=== PATIENT | male | born 1985 | race Hispanic/Latino ===

== ENCOUNTER 2018-08-02 10:02 | Emergency (ER) | payer BC ==
[~2018-08-02] VITALS: Ht 180.3 cm; Wt 142.9 kg
--- OUTSIDE RECORDS SUMMARY | 2018-08-02 10:05 | XMS REPORT | Clinical Summary ---
Author Author [employer] [place] [facility] [facility] [employer] [place] [facility] Address Unknown Phone Unavailable Care Team Providers Care Oxygraph Operator Name Role Phone Tawanda Moran MD PCP Allergies No Known Allergies Medications End Date Status Medication Sig Dispensed Refills Start Date Active losartan (COZAAR) 100 MG Take 100 mg 0 tablet by mouth daily. 10/22/2017 naproxen (NAPROSYN) 500 Take 1 tablet 60 tablet 0 201 MG tablet (500 mg 8 total) by mouth 2 (two) times a day with meals for 30 days. Active Problems Not on file Encounters Care Team Description Date Type Specialty Fang Pathak MD Chest pain at rest (Primary Dx) 09/22/2017 Emergency Emergency Medicine after 08/01/2017 Social History Date Tobacco Use Types Packs/Day Years Used Never Smoker Smokeless Tobacco: Never Used Alcohol Use Drinks/Week oz/Week Comments Yes "Socially" Sex Assigned at Date Recorded Not on file Industry Job Start Date Occupation Not on file Not on file Not on file Travel End Travel History Travel Start No recent travel history available. Last Filed Vital Signs Time Taken Vital Sign Reading 09/22/2017 1:23 PM CDT Blood Pressure 132/65 09/22/2017 1:23 PM CDT Pulse 64 09/22/2017 9:39 AM CDT Temperature 36.7 C (98.1 F) 09/22/2017 1:23 PM CDT Respiratory Rate 16 09/22/2017 1:23 PM CDT Oxygen Saturation 100% - Inhaled Oxygen - Concentration - Weight - 09/22/2017 9:39 AM CDT Height 180.3 cm (5' 11") - Body Mass Index - Plan of Treatment Health Maintenance Due Date Last Done Comments INFLUENZA VACCINE 12/13/2017 Procedures Comments Procedure Name Priority Date/Time Associated Diagnosis CT ANGIOGRAM PE CHEST STAT 09/22/2017 1:05 PM CDT XR CHEST 1 VW PORTABLE STAT 09/22/2017 10:46 AM CDT ECG ED PRELIMINARY Routine 09/22/2017 INTERPRETATION 10:27 AM CDT D-DIMER STAT 09/22/2017 10:02 AM CDT ZZESTIMATED GFR STAT 09/22/2017 10:02 AM CDT B NATRIURETIC PEPTIDE STAT 09/22/2017 10:02 AM CDT TROPONIN STAT 09/22/2017 10:02 AM CDT COMPREHENSIVE METABOLIC STAT 09/22/2017 PANEL 10:02 AM CDT HC COMPLETE BLD COUNT STAT 09/22/2017 W/AUTO DIFF 10:02 AM CDT ECG 12-LEAD STAT 09/22/2017 9:44 AM CDT after 08/01/2017 Results * CT Angiogram Pe Chest (09/22/2017 1:05 PM CDT) Narrative Performed At EXAMINATION: [facility] CT ANGIOGRAM PE CHEST CLINICAL HISTORY: chest pain TECHNIQUE: CT angiographic images of the chest were obtained during intravenous administration of iodinated contrast. Computerized reformatted images and 3-D MIP images were also obtained and archived (CT pulmonary embolus protocol). Approximately 60 cc of Visipaque [address] scan performed using radiation dose reduction techniques. Technical factors are evaluated and adjusted to ensure appropriate moderation of exposure. Automated dose management technology is applied to adjust the radiation dose to minimize expose whileachieving a diagnostic quality image. COMPARISON: None. FINDINGS: The exam is suboptimal due to poor contrast desiccation of the subsegmental and subsegmental pulmonary artery branches and motion artifacts. The main pulmonary artery, right pulmonary artery and left pulmonary artery as well as their visualized segmental and subsegmental branches demonstrate no evidence of intraluminal thrombosis. The pulmonary arteries are normal in caliber. There is no evidence of aortic aneurysm or dissection. No mediastinum, hilar or axillary pathologic adenopathy is seen. The heart is normal in caliber. No pericardial effusion is seen. Both lungs are clear. No pleural effusion is identified. The image portion of the abdomen viscera is unremarkable. IMPRESSION: No CTA evidence of pulmonary embolism. No CTA evidence of aortic aneurysm or dissection. No CT evidence of active disease of the chest. [id number] Procedure Note Interface, Radiology Results Incoming - 09/22/2017 1:18 PM CDT EXAMINATION: CT ANGIOGRAM PE CHEST CLINICAL HISTORY: chest pain TECHNIQUE: CT angiographic images of the chest were obtained during intravenous administration of iodinated contrast. Computerized reformatted images and 3-D MIP images were also obtained and archived (CT pulmonary embolus protocol). Approximately 60 cc of Visipaque [address] scan performed using radiation dose reduction techniques. Technical factors are evaluated and adjusted to ensure appropriate moderation of exposure. Automated dose management technology is applied to adjust the radiation dose to minimize expose while achieving a diagnostic quality image. COMPARISON: None. FINDINGS: The exam is suboptimal due to poor contrast desiccation of the subsegmental and subsegmental pulmonary artery branches and motion artifacts. The main pulmonary artery, right pulmonary artery and left pulmonary artery as well as their visualized segmental and subsegmental branches demonstrate no evidence of intraluminal thrombosis. The pulmonary arteries are normal in caliber. There is no evidence of aortic aneurysm or dissection. No mediastinum, hilar or axillary pathologic adenopathy is seen. The heart is normal in caliber. No pericardial effusion is seen. Both lungs are clear. No pleural effusion is identified. The image portion of the abdomen viscera is unremarkable. IMPRESSION: No CTA evidence of pulmonary embolism. No CTA evidence of aortic aneurysm or dissection. No CT evidence of active disease of the chest. [id number] Performing Organization Address City/State/Zipcode Phone Number [facility] [address] [place] [address] * XR Chest 1 Vw Portable (09/22/2017 10:46 AM CDT) Narrative Performed At EXAMINATION:[facility] CL[facility]ICAL [facility]:Chest Pain COMPARISON:None. IMPRESSION: Single frontal view reveals a normal cardiomediastinal silhouette. Lungs are clear. Pleural margins are sharp. The remainder of the examination is unremarkable. [facility]-[id number] Procedure Note Interface, Radiology Results Incoming - 09/22/2017 10:53 AM CDT EXAMINATION: XR CHEST 1 VW PORTABLE CLINICAL HISTORY: Chest Pain COMPARISON: None. IMPRESSION: Single frontal view reveals a normal cardiomediastinal silhouette. Lungs are clear. Pleural margins are sharp. The remainder of the examination is unremarkable. [facility]-[id number] Performing Organization Address [facility] Phone Number [facility] [address] [place] [address] * ECG ED Preliminary Interpretation - NOT AN ORDER (09/22/2017 10:27 AM CDT) Narrative Performed At Fang Pathak MD 09/22/20175:28 PM ECG ED Preliminary Interpretation - Not an Order Performed by: FANG PATHAK Authorized by: FANG PATHAK ECG reviewed by ED Physician in the absence of a allergist/md: yes Interpretation: Interpretation: normal Rate: ECG rate:70 ECG rate assessment: normal Rhythm: Rhythm: sinus rhythm Rhythm comment:With sinus arrhythmia QRS: QRS axis:Normal QRS intervals:Normal * Estimated GFR (09/22/2017 10:02 AM CDT) GFR Non Af Amer >90 mL/min/1.73 m2 [facility] DEPARTMENT OF PATHOLOGY AND GENOMIC MEDICINE GFR Af Amer >90 mL/min/1.73 m2 [facility] DEPARTMENT OF Comment: PATHOLOGY AND Chronic kidney disease: <60 GENOMIC MEDICINE mL/min/1.73m2 Kidney failure: <15 mL/min/1.73m2 The estimated GFR is calculated from the IDMS-traceable Modification of Diet in Renal Disease Equation. The accuracy of the calculation is poor when the creatinine is normal. Calculated values >90 mL/min/1.73m2 are not reported. This equation has not been validated in children (<18 years), women, the elderly (>70 years), or ethnic groups other than Caucasians and Americans. Specimen Plasma specimen Performing Organization Address [facility] Phone Number [facility] DEPARTMENT OF [address] [place] [address] PATHOLOGY AND GENOMIC MEDICINE * Troponin (09/22/2017 10:02 AM CDT) Troponin <0.30 0.00 - 0.30 ng/mL [facility] DEPARTMENT OF Comment: PATHOLOGY AND 0.30 - 1.49 GENOMIC MEDICINE ng/mlMay indicate increased risk of acute coronary syndrome. >=1.5 ng/ml Consistent with acute myocardial infarction. The diagnostic value of a single normal or non-diagnostic result is questionable.Serial samples at 2-6 hour intervals are required to rule out acute myocardial injury. Specimen Plasma specimen Performing Organization Address [facility]/[place] [address] PATHOLOGY AND [employer] MEDICINE * D-dimer (09/22/2017 10:02 AM CDT) D-dimer <0.27 0.00 - 0.40 ug/mL FEU [facility] DEPARTMENT OF Comment: PATHOLOGY AND Units are ug/ml Fibrinogen GENOMIC MEDICINE Equivalent Unit. When combined with low clinical probability, D-dimer results of less than 0.5 ug/ml FEU have a good negativepredictive value in excluding PE or DVT. For D-dimer results greater than 0.5ug/ml FEU further testing is indicated if PE or DVT is suspectedclinically. Elevated D-dimer results have been reported in DVT, PE, and DIC cases and may indicate the presence of a clot. D-dimer results may be elevated due to old age, , inflammatory diseases, trauma, post-operative states, sepsis, and malignancies. Specimen Blood Performing Organization Address [facility] [place] [address] PATHOLOGY AND [employer] [facility]ICINE * CBC with platelet and differential (09/22/2017 10:02 AM CDT) WBC 7.34 4.50 - 11.00 k/uL [facility] DEPARTMENT OF PATHOLOGY AND GENOMIC MEDICINE RBC 5.08 4.40 - 6.00 m/uL [facility] DEPARTMENT OF PATHOLOGY AND GENOMIC MEDICINE HGB 15.6 14.0 - 18.0 g/dL [facility] DEPARTMENT OF PATHOLOGY AND GENOMIC MEDICINE HCT 45.1 41.0 - 51.0 % [facility] DEPARTMENT OF PATHOLOGY AND GENOMIC MEDICINE MCV 88.8 82.0 - 100.0 fL [facility] DEPARTMENT OF PATHOLOGY AND GENOMIC MEDICINE MCH 30.7 27.0 - 34.0 pg [facility] DEPARTMENT OF PATHOLOGY AND GENOMIC MEDICINE MCHC 34.6 31.0 - 37.0 g/dL [facility] DEPARTMENT OF PATHOLOGY AND GENOMIC MEDICINE RDW - SD 38.8 37.0 - 55.0 fL [facility] DEPARTMENT OF PATHOLOGY AND GENOMIC MEDICINE MPV 11.9 8.8 - 13.2 fL [facility] DEPARTMENT OF PATHOLOGY AND GENOMIC MEDICINE Platelet count 177 150 - 400 k/uL [facility] DEPARTMENT OF PATHOLOGY AND GENOMIC MEDICINE Nucleated RBC 0.00 /100 WBC [facility] DEPARTMENT OF PATHOLOGY AND GENOMIC MEDICINE Neutrophils 69.2 (H) 39.0 - 69.0 % [facility] DEPARTMENT OF PATHOLOGY AND GENOMIC MEDICINE Lymphocytes 21.8 (L) 25.0 - 45.0 % [facility] DEPARTMENT OF PATHOLOGY AND GENOMIC MEDICINE Monocytes 7.2 0.0 - 10.0 % [facility] DEPARTMENT OF PATHOLOGY AND GENOMIC MEDICINE Eosinophils 0.8 0.0 - 5.0 % [facility] DEPARTMENT OF PATHOLOGY AND GENOMIC MEDICINE Basophils 0.5 0.0 - 1.0 % [facility] DEPARTMENT OF PATHOLOGY AND GENOMIC MEDICINE Immature granulocytes 0.5Comment: "Immature 0.0 - 1.0 % [facility] DEPARTMENT OF granulocytes" (promyelocytes, PATHOLOGY AND myelocytes, metamyelocytes) [facility] Specimen Blood Performing Organization Address City/[facility]/[place] [address] PATHOLOGY AND GENOMIC MEDICINE * B natriuretic peptide (09/22/2017 10:02 AM CDT) BNP 18 0 - 100 pg/mL [facility] DEPARTMENT OF PATHOLOGY AND GENOMIC MEDICINE Specimen Blood Performing Organization Address City/[facility]/[place] [address] PATHOLOGY AND [employer] MEDICINE * Comprehensive metabolic panel (09/22/2017 10:02 AM CDT) Sodium 137 135 - 148 mEq/L [facility] DEPARTMENT OF PATHOLOGY AND GENOMIC MEDICINE Potassium 3.6 3.5 - 5.0 mEq/L [facility] DEPARTMENT OF PATHOLOGY AND GENOMIC MEDICINE Chloride 99 98 - 112 mEq/L [facility] DEPARTMENT OF PATHOLOGY AND GENOMIC MEDICINE CO2 23 (L) 24 - 31 mEq/L [facility] DEPARTMENT OF PATHOLOGY AND GENOMIC MEDICINE Anion gap 15 7 - 15 mEq/L [facility] DEPARTMENT OF Comment: PATHOLOGY AND Starting from August GENOMIC MEDICINE , anion gap calculation no longer incorporates potassium. Please note the change. BUN 10 6 - 20 mg/dL [facility] DEPARTMENT OF PATHOLOGY AND GENOMIC MEDICINE Creatinine 0.8 0.7 - 1.2 mg/dL [facility] DEPARTMENT OF PATHOLOGY AND GENOMIC MEDICINE Glucose 100 (H) 65 - 99 mg/dL [facility] DEPARTMENT OF PATHOLOGY AND GENOMIC MEDICINE Calcium 9.6 8.3 - 10.2 mg/dL [facility] DEPARTMENT OF PATHOLOGY AND GENOMIC MEDICINE Protein 8.2 6.3 - 8.3 g/dL [facility] DEPARTMENT OF Comment: PATHOLOGY AND GENOMIC MEDICINE 4.6-7.0 g/dL 1 week 4.4-7.6 g/dL 7 months-1year 5.1-7.3 g/dL 1-2 years5.6-7 .5 g/dL >3 years6.0-8 .0 g/dL 18-150 6.3-8.3 g/dL Albumin 4.1 3.5 - 5.0 g/dL [facility] DEPARTMENT OF PATHOLOGY AND GENOMIC MEDICINE A/G ratio 1.0 0.7 - 3.8 [facility] DEPARTMENT OF PATHOLOGY AND GENOMIC MEDICINE Alkaline phosphatase 41 40 - 129 U/L [facility] DEPARTMENT OF PATHOLOGY AND GENOMIC MEDICINE AST 22 10 - 50 U/L [facility] DEPARTMENT OF PATHOLOGY AND GENOMIC MEDICINE ALT 26 5 - 50 U/L [facility] DEPARTMENT OF PATHOLOGY AND GENOMIC MEDICINE Total bilirubin 0.6 0.0 - 1.2 mg/dL [facility] DEPARTMENT OF PATHOLOGY AND GENOMIC MEDICINE Specimen Plasma specimen Performing Organization Address City/[facility] Phone Number [facility] DEPARTMENT [address] [place] [address] PATHOLOGY AND GENOMIC MEDICINE * ECG 12 lead (09/22/2017 9:44 AM CDT) Ventricular rate 70 [facility] Atrial rate 70 [facility] GA interval 150 [facility] QRSD interval 108 [facility] QT interval 402 [facility] QTC interval 434 [facility] M[facility] P axis 1 51 [facility] QRS axis 1 41 [facility] T wave axis 37 [facility] EKG impression Normal sinus rhythm with sinus [facility] MUSE arrhythmia-Normal ECG-- Performing Organization Address City/[facility] Phone Number [facility] [address] [place] [address] after 08/01/2017 Insurance Payer Benefit Subscriber ID Type Phone Address Plan / Group BCBS BCBS xxxxxxxxx PPO CHOICE PPO/[employer] PPO Advance Directives Patient has advance care planning documents on file. For more information, luis armando matthews contact: Dewayne Rocha [address] [facility] [place] [address]
== END 2018-08-02 10:40 | disposition home or self-care (01) ==
LOC: ER 10:02
DX: J30.9 Allergic rhinitis, unspecified (principal)
CPT/HCPCS: 99282

== ENCOUNTER → 2019-01-17 | Outpatient (CLI) | payer BC ==
--- NOTE | 2019-01-17 09:11 | Diagnostic Imaging Report ---
EXAM: US ABDOMEN COMPLETE DATE: 01/17/2019 7:43 AM INDICATION: Abdominal pain COMPARISON: None TECHNIQUE: Transverse and longitudinal monahan scale and color doppler sonographic images of the upper abdomen were obtained. FINDINGS: There is no evidence of fluid or masses seen in the area of clinical concern in the right lower quadrant. LIVER 17.7 cm in the right midclavicular line. Increased echogenicity of the liver with mildly irregular surface contour, no masses. SPLEEN 11.9 cm in maximum diameter. Normal echogenicity, no masses. GALLBLADDER No gallbladder wall thickening, distension, stone, or pericholecystic fluid. NEgative reported sonographic Levy's sign. Gallbladder wall measures 2 mm. BILE DUCTS No intra nor extra-hepatic biliary dilation. Common bile duct measures 0.3cm PANCREAS: Visualized portions are normal. RIGHT KIDNEY: 12.7 cm Echogenicity: Normal Collecting System: No hydronephrosis Stones: None Cyst/Mass: None LEFT KIDNEY: 12.0 cm Echogenicity: Normal Collecting System: No hydronephrosis Stones: None Cyst/Mass: None VESSELS: Aorta: Visualized portions are within normal size limits Inferior Vena Cava: Visualized portions are normal Main Portal Vein: 1.3 cm, normal size with hepatopetal flow. FREE FLUID: None IMPRESSION: Hepatic steatosis, hepatomegaly and mildly irregular liver surface contour compatible with early cirrhosis. Signed by: Penelope Luis MD on 01/17/2019 9:08 AM
== END ==
LOC: US 07:32
PROVIDERS: ATTEND Family Medicine
DX: R10.31 Right lower quadrant pain (principal); K76.0 Fatty (change of) liver, not elsewhere classified; R16.0 Hepatomegaly, not elsewhere classified; K76.9 Liver disease, unspecified
CPT/HCPCS: 76700